=== PATIENT | male | born 1945 | race Hispanic/Latino ===

== ENCOUNTER → 2018-08-23 | Outpatient (CLI) | payer OTHER ==
[~2018-08-23] MED LIST: ALBU90AE IH; ALLO300T2 PO; ASPI-891 PO; ATEN25TA PO; ATOR-2 PO; BUDE10.2 IH; CLON0.1T PO; CLOP75TA14 PO; DOCU-282 PO; LACT10SO PO; LEVO50TA11 PO; LORA10CA9 PO; LORA1TAB3 PO; LOSA25TA41 PO; METF-444 PO; OXYB5TAB10 PO; PANT40TA25 PO; TRAM50TA4 PO; TRAZ150T79 PO
== END | disposition home or self-care (01) ==
LOC: SHCH 09:18
PROVIDERS: ATTEND Internal Medicine Cardiovascular Disease
DX: I65.23 Occlusion and stenosis of bilateral carotid arteries (principal); I65.01 Occlusion and stenosis of right vertebral artery
CPT/HCPCS: 93880

== ENCOUNTER 2018-10-31 17:42 | Emergency (ER) | payer OTHER ==
[2018-10-31 18:33] LABS: BASOPHILS % (AUTO) 0.4 % (0.0-5.0); EOSINOPHILS % (AUTO) 2.1 % (0.0-8.0); HEMATOCRIT 39.3 % (42-54); LYMPHOCYTES % (AUTO) 28.2 % (21.0-51.0); MEAN CORPUSCULAR HEMOGLOBIN 32.4 pg (27.0-33.0); MEAN CORPUSCULAR HGB CONC 34.4 g/dL (32.0-36.0); MEAN CORPUSCULAR VOLUME 94.3 fL (79-99); MONOCYTES % (AUTO) 7.2 % (3.0-13.0); NEUTROPHILS % (AUTO) 62.1 % (40.0-77.0); NUCLEATED RED BLOOD CELLS 0.1 % (0.0-0.19); PLATELET COUNT (AUTO) 144 K/uL (130-400); RED BLOOD CELL COUNT(AUTO) 4.16 MIL/uL (4.50-6.20); RED CELL DISTRIBUTION WIDTH 15.6 % (11.0-15.5); WHITE BLOOD COUNT (AUTO) 5.9 K/uL (4.8-10.8)
[2018-10-31 18:44] LABS: POTASSIUM 4.6 mmol/L (3.5-5.1)
[2018-10-31 18:49] LABS: ALBUMIN 3.8 g/dL (3.5-5.0); BILIRUBIN,TOTAL 0.9 mg/dL (0.2-1.0); TOTAL PROTEIN, SERUM 6.3 g/dL (6.0-8.3)
[2018-10-31 18:57] LABS: B-TYPE NATRIURETIC PEPTIDE 39 pg/mL (0-100)
== END 2018-10-31 21:16 | disposition home or self-care (01) ==
LOC: EDH 17:42
DX: J45.901 Unspecified asthma with (acute) exacerbation (principal); E78.5 Hyperlipidemia, unspecified; I10 Essential (primary) hypertension; K21.9 Gastro-esophageal reflux disease without esophagitis; Z98.62 Peripheral vascular angioplasty status; Z87.891 Personal history of nicotine dependence; Z88.2 Allergy status to sulfonamides; Z88.1 Allergy status to other antibiotic agents; Z88.8 Allergy status to other drugs, medicaments and biological substances
CPT/HCPCS: 36415; 71045; 80053; 83880; 85025

== ENCOUNTER → 2019-05-01 | Outpatient (CLI) | payer OTHER ==
[~2019-05-01] MED LIST changes: -OXYB5TAB10 PO; +OXYB5TAB15 PO
== END | disposition home or self-care (01) ==
LOC: OIH 15:19
PROVIDERS: ATTEND Family Medicine
DX: I10 Essential (primary) hypertension (principal); R63.4 Abnormal weight loss
CPT/HCPCS: 71046

== ENCOUNTER → 2019-06-15 | Outpatient (CLI) | payer OTHER | END | disposition home or self-care (01) | LOC: SHCH 11:00 | PROVIDERS: ATTEND Internal Medicine Cardiovascular Disease | DX: I65.23 Occlusion and stenosis of bilateral carotid arteries (principal) | CPT/HCPCS: 93880 ==

== ENCOUNTER → 2019-06-16 | Outpatient (CLI) | payer OTHER ==
[~2019-06-16] MED LIST changes: +IOHEXOL-350 75 ML VIAL IV ONE
== END | disposition home or self-care (01) ==
LOC: RAH 07:22
PROVIDERS: ATTEND Internal Medicine Gastroenterology
DX: K57.30 Diverticulosis of large intestine without perforation or abscess without bleeding (principal); I70.0 Atherosclerosis of aorta; I77.811 Abdominal aortic ectasia; I21.9 Acute myocardial infarction, unspecified
CPT/HCPCS: 74170; Q9967

== ENCOUNTER → 2019-07-11 | Outpatient (CLI) | payer OTHER ==
[~2019-07-11] MED LIST changes: -IOHEXOL-350 75 ML VIAL IV ONE
== END | disposition home or self-care (01) ==
LOC: SHCH 11:00
PROVIDERS: ATTEND Internal Medicine Cardiovascular Disease
DX: I73.9 Peripheral vascular disease, unspecified (principal)
CPT/HCPCS: 93925

== ENCOUNTER → 2019-07-18 | Outpatient (CLI) | payer OTHER ==
[~2019-07-18] MED LIST changes: +IOHEXOL-350 75 ML VIAL IV ONE
== END | disposition home or self-care (01) ==
LOC: RAH 07:45
PROVIDERS: ATTEND Internal Medicine Cardiovascular Disease
DX: I65.22 Occlusion and stenosis of left carotid artery (principal)
CPT/HCPCS: 70498; Q9967

== ENCOUNTER → 2019-09-18 | Outpatient (CLI) | payer OTHER ==
[~2019-09-18] MED LIST changes: -IOHEXOL-350 75 ML VIAL IV ONE
== END | disposition home or self-care (01) ==
LOC: OIH 13:23
PROVIDERS: ATTEND Family Medicine
DX: J45.30 Mild persistent asthma, uncomplicated (principal)
CPT/HCPCS: 71046

== ENCOUNTER → 2019-11-02 | Outpatient (CLI) | payer OTHER | END | disposition home or self-care (01) | LOC: SHCH 08:13 | PROVIDERS: ATTEND Internal Medicine Cardiovascular Disease | DX: I99.8 Other disorder of circulatory system (principal); I10 Essential (primary) hypertension; R42 Dizziness and giddiness | CPT/HCPCS: 70450; 93306; 93356 ==

== ENCOUNTER → 2020-12-04 | Outpatient (CLI) | payer OTHER ==
[~2020-12-04] MED LIST changes: -LACT10SO PO; +LACT10SO5 PO; -PANT40TA25 PO; +PANT40TA54 PO
== END | disposition home or self-care (01) ==
LOC: SHCH 07:49
PROVIDERS: ATTEND Internal Medicine Cardiovascular Disease
DX: I65.23 Occlusion and stenosis of bilateral carotid arteries (principal); R09.89 Other specified symptoms and signs involving the circulatory and respiratory systems; I70.293 Other atherosclerosis of native arteries of extremities, bilateral legs; I71.4 Abdominal aortic aneurysm, without rupture
CPT/HCPCS: 93880; 93978

== ENCOUNTER → 2021-07-10 | Outpatient (CLI) | payer OTHER | END | disposition home or self-care (01) | LOC: OIH 12:49 | PROVIDERS: ATTEND Family Medicine | DX: K21.9 Gastro-esophageal reflux disease without esophagitis (principal); K59.00 Constipation, unspecified; M47.815 Spondylosis without myelopathy or radiculopathy, thoracolumbar region; M41.9 Scoliosis, unspecified | CPT/HCPCS: 74018 ==

== ENCOUNTER → 2022-02-16 | Outpatient (CLI) | payer OTHER ==
[~2022-02-16] MED LIST changes: +IOHEXOL 350 MG/ML 100ML INFUS..BTL IV ONE; +TOBR5DRO7 OP
== END | disposition home or self-care (01) ==
LOC: RAH 09:11
PROVIDERS: ATTEND Family Medicine
DX: G31.9 Degenerative disease of nervous system, unspecified (principal); R51.9 Headache, unspecified
CPT/HCPCS: 70470; Q9967

== ENCOUNTER → 2022-04-08 | Outpatient (CLI) | payer OTHER ==
[~2022-04-08] MED LIST changes: +CLOP-31 PO; -CLOP75TA14 PO; -IOHEXOL 350 MG/ML 100ML INFUS..BTL IV ONE
== END | disposition home or self-care (01) ==
LOC: SHCH 07:45
PROVIDERS: ATTEND Internal Medicine Cardiovascular Disease
DX: I65.23 Occlusion and stenosis of bilateral carotid arteries (principal); I65.01 Occlusion and stenosis of right vertebral artery; I10 Essential (primary) hypertension; I77.811 Abdominal aortic ectasia; I70.293 Other atherosclerosis of native arteries of extremities, bilateral legs; I25.10 Atherosclerotic heart disease of native coronary artery without angina pectoris; I70.0 Atherosclerosis of aorta
CPT/HCPCS: 93880; 93978

== ENCOUNTER → 2022-12-11 | Outpatient (CLI) | payer OTHER ==
[~2022-12-11] MED LIST changes: +IOHEXOL 350 MG/ML 100ML INFUS..BTL IV ONE; -TOBR5DRO7 OP; +TOBROS OP
== END | disposition home or self-care (01) ==
LOC: RAH 08:06
PROVIDERS: ATTEND Internal Medicine Cardiovascular Disease
DX: I65.22 Occlusion and stenosis of left carotid artery (principal); I70.8 Atherosclerosis of other arteries; M47.812 Spondylosis without myelopathy or radiculopathy, cervical region
CPT/HCPCS: 70498; Q9967

== ENCOUNTER → 2023-05-14 | Outpatient (CLI) | payer OTHER ==
[~2023-05-14] MED LIST changes: -IOHEXOL 350 MG/ML 100ML INFUS..BTL IV ONE; -OXYB5TAB15 PO; +OXYB5TAB20 PO
== END | disposition home or self-care (01) ==
LOC: RAH 10:51
PROVIDERS: ATTEND Family Medicine
DX: I70.203 Unspecified atherosclerosis of native arteries of extremities, bilateral legs (principal); M25.562 Pain in left knee
CPT/HCPCS: 93925

== ENCOUNTER 2023-08-27 17:11 | Emergency (ER) | payer OTHER ==
[~2023-08-27] VITALS: Ht 182.9 cm; Wt 79.4 kg
[2023-08-27 17:53] LABS: HEMATOCRIT 38.6 % (42-54); MEAN CORPUSCULAR HEMOGLOBIN 28.2 pg (27.0-33.0); MEAN CORPUSCULAR HGB CONC 33.4 g/dL (32.0-36.0); MEAN CORPUSCULAR VOLUME 84.5 fL (79-99); RED BLOOD CELL COUNT(AUTO) 4.57 MIL/uL (4.50-6.20); RED CELL DISTRIBUTION WIDTH 15.8 % (11.0-15.5); WHITE BLOOD COUNT (AUTO) 6.1 K/uL (4.8-10.8)
[2023-08-27 18:02] LABS: CREATININE 1.3 mg/dL (0.5-1.3); POTASSIUM 3.4 mmol/L (3.5-5.1)
[2023-08-27 18:17] LABS: ALBUMIN 3.7 g/dL (3.5-5.0); BILIRUBIN,TOTAL 0.7 mg/dL (0.2-1.0); TOTAL PROTEIN, SERUM 6.4 g/dL (6.0-8.3)
[2023-08-27 18:49] VITALS: PULSE 66; RESP 11
[2023-08-27] MEDS: IPRATROPIUM/ALBUTEROL SULFATE 3 ML SOLUTION IH ONE (18:49)
[2023-08-27 19:19] LABS: SARS-CoV-2, RNA, NAAT NEGATIVE SARS CoV-2 (NEGATIVE)
[2023-08-27 19:24] LABS: INFLUENZA TYPE A Negative For Type A (NEGATIVE); INFLUENZA TYPE B Negative For Type B (NEGATIVE)
[2023-08-27 20:45] VITALS: BP 142/72; PULSE 60; RESP 16; O2SAT 96
[2023-08-27] MEDS: DEXAMETHASONE SOD PHOSPHATE 4 MG/ML 1ML VIAL IM SCH (20:57)
== END 2023-08-27 21:45 | disposition home or self-care (01) ==
LOC: EDH 17:11
DX: J06.9 Acute upper respiratory infection, unspecified (principal); I10 Essential (primary) hypertension; E11.9 Type 2 diabetes mellitus without complications; J45.909 Unspecified asthma, uncomplicated; E03.9 Hypothyroidism, unspecified; Z88.0 Allergy status to penicillin; Z88.6 Allergy status to analgesic agent; Z88.8 Allergy status to other drugs, medicaments and biological substances; Z79.84 Long term (current) use of oral hypoglycemic drugs; Z79.899 Other long term (current) drug therapy; Z20.822 Contact with and (suspected) exposure to COVID-19
CPT/HCPCS: 99285; 71045; 87635; 84484; 80053; 83880; 85027; 87804 ×2; 36415; 96372; 93005; 94640; J1100

== ENCOUNTER 2024-01-14 23:27 | Emergency (ER) | payer OTHER ==
[~2024-01-14] VITALS: Ht 180.3 cm; Wt 70.3 kg
[2024-01-14 23:52] LABS: BASOPHILS # (AUTO) 0.01 K/uL (0.00-0.20); BASOPHILS % (AUTO) 0.1 % (0.0-5.0); EOSINOPHILS # (AUTO) 0.03 K/uL (0.00-0.70); EOSINOPHILS % (AUTO) 0.4 % (0.0-8.0); HEMATOCRIT 36.8 % (42-54); IMMATURE GRANULOCYTE ABSOLUTE 0.04 K/uL (0-1); LYMPHOCYTES # (AUTO) 0.8 K/uL (1.0-4.8); LYMPHOCYTES % (AUTO) 11.6 % (21.0-51.0); MEAN CORPUSCULAR HGB CONC 34.2 g/dL (32.0-36.0); MEAN CORPUSCULAR VOLUME 84.6 fL (79-99); MONOCYTES # (AUTO) 0.6 K/uL (0.1-1.0); MONOCYTES % (AUTO) 8.8 % (3.0-13.0); NEUTROPHILS # (AUTO) 5.3 K/uL (1.8-7.7); NEUTROPHILS % (AUTO) 78.5 % (40.0-77.0); PLATELET COUNT (AUTO) 142 K/uL (130-400); RED BLOOD CELL COUNT(AUTO) 4.35 MIL/uL (4.50-6.20); RED CELL DISTRIBUTION WIDTH 16.7 % (11.0-15.5); WHITE BLOOD COUNT (AUTO) 6.7 K/uL (4.8-10.8)
[2024-01-14] MEDS: ONDANSETRON 4MG INJ IVP ONE (23:59)
[2024-01-14] MEDS: 0.9%NACL 1000ML 1,000 ML IV ONE (23:59)
[2024-01-14] MEDS: KETOROLAC 15MG/ML VIAL (15MG/ML) IV ONE (23:59)
[2024-01-15 00:27] LABS: ALBUMIN 3.3 g/dL (3.5-5.0); BILIRUBIN,TOTAL 3.1 mg/dL (0.2-1.0); CREATININE 1.3 mg/dL (0.5-1.3); TOTAL PROTEIN, SERUM 5.8 g/dL (6.0-8.3)
[2024-01-15 00:31] LABS: POTASSIUM 2.6 mmol/L (3.5-5.1)
[2024-01-15] MEDS ORDERED: IOHEXOL-350 75 ML VIAL IV ONE (00:48)
[2024-01-15] MEDS: POTASSIUM BICARB/CIT AC 25 MEQ TABLET.EFF PO ONE (00:50)
[2024-01-15] MEDS: FAMOTIDINE 20MG VIAL IV ONE (00:50)
[2024-01-15] MEDS: MORPHINE 2 MG SYG IM ONE (01:33)
[2024-01-15] MEDS: BISACODYL 10 MG SUPP.RECT RC ONE (01:58)
[2024-01-15] MEDS: SENNOSIDES 8.6 MG TABLET PO SCH (01:58)
[2024-01-15 02:00] VITALS: BP 136/74; PULSE 69; RESP 16; O2SAT 97
[2024-01-16] MEDS ORDERED: ROSU40TA70 PO (11:42)
[2024-01-16] MEDS ORDERED: LEVE500T19 PO (11:42)
[2024-01-16] MEDS ORDERED: TRAZ-187 PO (11:42)
[2024-01-16] MEDS ORDERED: LEVO75CA5 PO (11:42)
[2024-01-16] MEDS ORDERED: MIDO10TA PO (11:42)
[2024-01-16] MEDS ORDERED: MONT-39 PO (11:42)
[2024-01-16] MEDS ORDERED: ESCI20TA38 PO (11:42)
[2024-01-16] MEDS ORDERED: ASPI-1197 PO (11:42)
[2024-01-16] MEDS ORDERED: LEVE250T2 PO (11:42)
[2024-01-16] MEDS ORDERED: FLUT1BLS3 IH (11:42)
== END 2024-01-15 03:01 | disposition home or self-care (01) ==
LOC: EDH 23:27
DX: K59.00 Constipation, unspecified (principal); E11.9 Type 2 diabetes mellitus without complications; I10 Essential (primary) hypertension; Z88.1 Allergy status to other antibiotic agents; Z88.8 Allergy status to other drugs, medicaments and biological substances; Z79.899 Other long term (current) drug therapy; Z88.0 Allergy status to penicillin
CPT/HCPCS: 99285; 74177; 96374; 96361; 96375 ×2; 80053; 83690; 85025; 36415; 96372; J7030; J2405; J1885; J3490; J2270; Q9967

== ENCOUNTER 2025-03-14 10:37 | Emergency (ER) | payer OTHER ==
[~2025-03-14] VITALS: Ht 185.4 cm; Wt 83.5 kg
[~2025-03-14 10:37] MED LIST changes: -ALBU90AE IH; -ALLO300T2 PO; +ASPI-1197 PO; -ASPI-891 PO; -ATEN25TA PO; -ATOR-2 PO; -BUDE10.2 IH; -CLON0.1T PO; -DOCU-282 PO; +ESCI20TA38 PO; +FLUT1BLS3 IH; -LACT10SO5 PO; +LEVE250T2 PO; +LEVE500T19 PO; -LEVO50TA11 PO; +LEVO75CA6 PO; -LORA10CA9 PO; -LORA1TAB3 PO; -LOSA25TA41 PO; -METF-444 PO; +MIDO10TA3 PO; +MONT-39 PO; +ROSU40TA88 PO; -TOBROS OP; -TRAM50TA4 PO; +TRAZ-187 PO; -TRAZ150T79 PO
--- NOTE | 2025-03-14 10:46 | ERN ---
ED Note History of Present Illness Stated Complaint: FALL Chief Complaint: Mechanical Fall Time Seen by MD: 10:39 Time Seen by Midlevel: 10:40 Dictation: 79-year-old male with a history of hypothyroidism coming in for evaluation status post ground level fall. Patient states fall happened down Wednesday, states he got up from the couch to go to the bathroom felt dizzy and fell backwards. Denies any LOC, states at that time he was bleeding from his head. At this time patient's only complaint is headache and neck pain. Denies having any chest pain, chest discomfort, dizziness, numbness, tingling, unilateral weakness, slurred speech. Denies any nausea or vomiting. Allergies: Coded Allergies: amoxicillin (Unverified Allergy, Intermediate, 05/02/18) clavulanic acid (Unverified Allergy, Intermediate, 05/02/18) doxepin (Unverified Allergy, Intermediate, anxiety, 05/02/18) ramelteon (Unverified Allergy, Intermediate, anxiety, 05/02/18) amitriptyline (Verified Allergy, Unknown, 01/27/18) amlodipine (Verified Allergy, Unknown, 01/27/18) cetirizine (Verified Allergy, Unknown, 01/27/18) cyclobenzaprine (Verified Allergy, Unknown, 01/27/18) diclofenac (Verified Allergy, Unknown, 01/27/18) esomeprazole (Verified Allergy, Unknown, 01/27/18) fluoxetine (Verified Allergy, Unknown, 01/27/18) lisinopril (Unverified Allergy, Unknown, 11/23/21) metoprolol (Verified Allergy, Unknown, 01/27/18) midodrine (Unverified Allergy, Unknown, 11/23/21) olanzapine (Unverified Allergy, Unknown, 11/23/21) potassium (Unverified Allergy, Unknown, 01/16/24) quetiapine (Unverified Allergy, Unknown, 11/23/21) sulfamethoxazole (Verified Allergy, Unknown, 01/27/18) suvorexant (Unverified Allergy, Unknown, 11/23/21) temazepam (Unverified Allergy, Unknown, 11/23/21) trimethoprim (Verified Allergy, Unknown, 01/27/18) Home Meds Active Scripts Potassium Chloride (Potassium Chloride) 20 Meq Tab.er.prt, 1 TAB PO DAILY for 5 Days, #5 TAB 0 Refills Prov:PERRY WORLEY CALCIMINER 03/14/25 Reported Medications Levothyroxine Sodium (Levothyroxine) 75 Mcg Capsule, 75 MCG PO ACBKFST, CAP 01/16/24 Fluticasone/Umeclidin/Vilanter (Trelegy Ellipta 100-62.5-25) 100-62.5 Blst.w.dev, 1 PUFF IH DAILY 01/16/24 Trazodone HCl (Trazodone HCl) 100 Mg Tablet, 450 MG PO HS, TAB 01/16/24 Rosuvastatin Calcium (Rosuvastatin Calcium) 40 Mg Tablet, 1 TAB PO DAILY 01/16/24 Montelukast Sodium (Montelukast Sodium) 10 Mg Tablet, 1 TAB PO DAILY 01/16/24 Midodrine HCl (Midodrine HCl) 10 Mg Tablet, 1 TAB PO TID 01/16/24 Levetiracetam (Levetiracetam) 500 Mg Tablet, 500 MG PO DAILYDINNER, TAB 01/16/24 Levetiracetam (Levetiracetam) 250 Mg Tablet, 250 MG PO DAILY, TAB 01/16/24 Escitalopram Oxalate (Escitalopram Oxalate) 20 Mg Tablet, 1 TAB PO DAILY 01/16/24 Aspirin (Aspirin) 81 Mg Tab.chew, 81 MG PO DAILY, TAB.CHEW 01/16/24 Clopidogrel Bisulfate (Plavix) 75 Mg Tablet, 75 MG PO DAILY, TAB 05/02/18 Oxybutynin Chloride (Oxybutynin Chloride) 5 Mg Tablet, 2 TAB PO HS, TAB 05/02/18 Pantoprazole Sodium (Pantoprazole Sodium) 40 Mg Tablet.dr, 40 MG PO DAILY, TAB 05/02/18 Past Medical History Past Medical History: CAD, Hypotension Additional Past Medical Hx: THYROID Surgical History: Other Surgical History Other: L KNEE Social History: Negative, Lives with family Review of System Dictation Constitutional: Negative for fever,chills, and weight loss Eyes: Negative for injury, pain,redness, and discharge ENT: Negative for injury,pain or swelling Cardiovascular: Negative for chest pain, palpitations, and edema Respiratory: Negative for shortness of breath, cough, and wheezing, Abdomen/GI: Negative for abdominal pain, nausea, vomiting, diarrhea, and consti pation Back: Negative for injury and pain : Negative for injury, bleeding and discharge MS/Extremity: Negative for injury and deformity Skin: Negative for rash, and discoloration Neuro: Positive for headache, no weakness, male numbness, no tingling, and no seizure Psych: Negative for suicide ideation, homicidal ideation, and hallucinations Review of Systems: was completed Initial Vital Sign VS Vital Signs Date Time Temp Pulse Resp B/P (MAP) Pulse Ox O2 Delivery O2 Flow Rate FiO2 03/14/25 10:39 98.2 84 16 120/79 95 Room Air 0 03/14/25 12:00 21 Physical Exam Dictation General: awake, alert, NAD Head/Face: Ecchymosis noted to the scalp, no open wounds, Eyes: PERRL, EOMI, vision at baseline ENT: oral cavity clear, TMs clear, no signs of infection Neck: Trachea midline, supple, no nuchal rigidity Cardiovascular: RRR, normal S1/S2, No MRGs, no JVD Respiratory: CTAB, no respiratory distress, No rales or wheezes Abdomen: Soft, non-tender, non-distended, normal bowel sounds, no guarding or rebound. Skin: Warm, dry, normal turgor, no rash MS/Extremity: Pulses equal, no cyanosis, neurovascular intact, FROM Neuro: COAx4, GCS 15, strength 5/5, CN 2-12 intact, normal cerebellar exam, normal gait, Psych: Normal behavior, mood, and affect normal Results (Laboratory/Radiology) Laboratory/Radiology Laboratory Tests Test 03/14/25 10:52 White Blood Count 6.3 K/uL (4.8-10.8) Red Blood Count 4.61 MIL/uL (4.50-6.20) Hemoglobin 12.6 g/dL (14.0-18.0) L Hematocrit 38.4 % (42-54) L Mean Corpuscular Volume 83.3 fL (79-99) Mean Corpuscular Hemoglobin 27.3 pg (27.0-33.0) Mean Corpuscular Hemoglobin Concent 32.8 g/dL (32.0-36.0) Red Cell Distribution Width 17.1 % (11.0-15.5) H Platelet Count 172 K/uL (130-400) Mean Platelet Volume 10.4 fL (7.5-10.5) Immature Granulocyte % (Auto) 0.3 % (0-1) Neutrophils (%) (Auto) 59.7 % (40.0-77.0) Lymphocytes (%) (Auto) 28.8 % (21.0-51.0) Monocytes (%) (Auto) 8.2 % (3.0-13.0) Eosinophils (%) (Auto) 2.5 % (0.0-8.0) Basophils (%) (Auto) 0.5 % (0.0-5.0) Neutrophils # (Auto) 3.8 K/uL (1.8-7.7) Lymphocytes # (Auto) 1.8 K/uL (1.0-4.8) Monocytes # (Auto) 0.5 K/uL (0.1-1.0) Eosinophils # (Auto) 0.16 K/uL (0.00-0.70) Basophils # (Auto) 0.03 K/uL (0.00-0.20) Absolute Immature Granulocyte (auto 0.02 K/uL (0-1) Nucleated Red Blood Cells 0.0 % (0.0-0.19) Sodium Level 148 mmol/L (136-145) H Potassium Level 2.3 mmol/L (3.5-5.1) *L Chloride Level 105 mmol/L (101-111) Carbon Dioxide Level 34 mmol/L (21-32) H Blood Urea Nitrogen 6 mg/dL (7-18) L Creatinine 1.1 mg/dL (0.5-1.3) Glomerular Filtration Rate Calc 69 mL/min (>90) Random Glucose 100 mg/dL (70-105) Total Calcium 8.4 mg/dL (8.5-10.1) L Troponin I High Sensitivity 32 ng/L (4-75) Labs Reviewed?: Yes EKG Comment: EKGs done at 10 50. Sinus arrhythmia at rate of 64. Left anterior fascicular block. No STEMI interpreted by ER MD CT Scan Comment: [address] [address] IMAGING REPORT Signed PATIENT: MICHAEL MCKEE MR#: [id number] : 1945 SEX: M AGE: 79 LOCATION: ED ORDER [id number] STATUS: REG ER REPORT#: [id number] SERVICE 38 REASON: fall ORDERING PHYSICIAN: PERRY WORLEY PROCEDURE: HEAD WO - CT HEAD/BRAIN W/O CONTRAST EXAM: Non-contrast CT examination of the Brain CLINICAL HISTORY: Fall. Syncope. TECHNIQUE: Thin collimated axial CT images of the brain were obtained, with sagittal and coronal reformatted images also submitted. CT scan done according to ALARA (As Low as Reasonably Achievable). CONTRAST USED: None. COMPARISON: Prior CT brain dated 01/15/24. FINDINGS: No acute intracranial abnormality is present. No acute cortical infarction, hemorrhage, mass, or mass effect. Stable chronic ischemic and atrophic changes. No hydrocephalus or abnormal extra-axial fluid collections. The posterior fossa is unremarkable. The skull base and calvarium are intact. The included portions of the paranasal sinuses and mastoid air cells are clear. IMPRESSION: No acute intracranial abnormality is present. Stable chronic ischemic and atrophic changes. /[place] DICTATED BY: QUAN PENNINGTON MD DATE: 03/14/251240 ELECTRONICALLY SIGNED BY: QUAN PENNINGTON MD DATE: 03/14/251240 [place] [id number] IMAGING REPORT Signed PATIENT: MICHAEL MCKEE MR#: [id number] : 1945 SEX: M AGE: 79 LOCATION: [facility] ORDER [id number] STATUS: REG ER [facility] REPORT#: [id number] SERVICE 103 REASON: fall ORDERING PHYSICIAN: PERRY WORLEY PROCEDURE: C SPIN WO - CT CERVICAL SPINE W/O CONTRAST EXAM: CT Cervical Spine Without IV Contrast CLINICAL HISTORY: Fall. TECHNIQUE: Thin collimated axial CT images of the cervical spine were obtained with sagittal and coronal reformatted images also submitted. CT scan is done according to ALARA (As Low As Reasonably Achievable). CONTRAST: None. COMPARISON: None provided. FINDINGS: No acute fracture. Mild loss of normal cervical lordosis. Mild to moderate dextroscoliosis. Multilevel cervical spondylosis with prominent marginal osteophytes. Severe disc space narrowing at the C3-4, C4-5, C5-6, and C6-7 levels with a circumferential disc osteophyte complex bulge and bilateral neural foraminal narrowing. Bilateral multilevel mild to moderate facet arthropathy. Normal vertebral body heights. Diffuse osteopenia. The surrounding soft tissues are unremarkable. There is a left-sided pleural effusion which is not fully visualized on this exam. IMPRESSION: No acute fracture or dislocation of the cervical spine. Multilevel cervical spondylosis. Left-sided pleural effusion. /[place] DICTATED BY: QUAN PENNINGTON MD DATE: 03/14/25 125 ELECTRONICALLY SIGNED BY: QUAN PENNINGTON MD DATE: 03/14/25 125 ED Course ED Course Orders Procedure Category Date Status Time Cbc With Differential LAB 03/14/25 Complete 10:39 Basic Metabolic Panel LAB 03/14/25 Complete 10:39 Troponin I High LAB 03/14/25 Complete Sensitivity 10:39 12 Lead Ekg Tracing- EKG 03/14/25 Complete Technical 10:39 Chest 1vw RAD 03/14/25 Resulted 10:39 Ct Head/Brain W/O CT 03/14/25 Resulted Contrast 10:39 Ct Cervical Spine W/O CT 03/14/25 Resulted Contrast 10:39 Lactated Ringers PHA 03/14/25 Complete 1000ml (Lactated 10:39 Potassium Bicarb/Cit PHA 03/14/25 Complete Ac 25meq (K-Lyte Ta 11:15 Potassium Chloride PHA 03/14/25 Complete 10meq/100ml ([place] 11:30 Current Medications Medications (Trade) Dose Ordered Sig/Rohini Route PRN Reason Start Time Stop Time Status Last Admin Dose Admin Lactated Ringer's 1,000 ml @ 500 mls/hr Q2H STAT IV 03/14/25 10:39 03/14/25 12:38 DC 03/14/25 11:04 Potassium Bicarbonate (K-Lyte Tablet Eff 25 Meq Tablet.eff) 50 meq ONCE STAT PO 10/8/25 11:15 03/14/25 11:20 DC 03/14/25 11:42 Potassium Chloride 100 ml @ 100 mls/hr ONCE ONCE IV 03/14/25 11:30 03/14/25 12:29 DC 03/14/25 11:42 Vital Signs Date Time Temp Pulse Resp B/P (MAP) Pulse Ox O2 Delivery O2 Flow Rate FiO2 03/14/25 13:51 98.2 67 16 159/80 98 Room Air* 0 21 03/14/25 13:41 98.2 60 16 149/80 96 Room Air* 0 21 03/14/25 12:00 98.2 67 18 141/76 98 Room Air* 0 21 03/14/25 10:39 98.2 84 16 120/79 95 Room Air 0 Medical Decision Making MDM MDM: 79-year-old male with a history of hypothyroidism coming in for evaluation status post ground level fall. Patient states fall happened down Wednesday, states he got up from the couch to go to the bathroom felt dizzy and fell backwards. Denies any LOC, states at that time he was bleeding from his head. At this time patient's only complaint is headache and neck pain. Denies having any chest pain, chest discomfort, dizziness, numbness, tingling, unilateral weakness, slurred speech. Denies any nausea or vomiting. CBC shows no leukocytosis, no anemia, no thrombocytopenia. Chemistry shows hyponatremia at 148, hypokalemia at 2.3. Normal kidney function. Troponin is negative. Chest x-ray shows no acute finding, EKGs shows no ST elevations or dysrhythmias. Potassium was replaced p.o. and IV. Discussed case the hypokalemia with the patient, recommended hospital admission for IV potassium replacement and monitoring gave him but then she risk for cardiac arrhythmias. 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 Shared decision-making was completed the patient has a alert and oriented it has been patient is making capacity agreed to outpatient management with the oral potassium supplementation and close follow up. Strict return pre cautions discussed including chest pain, palpitations, weakness, worsening any symptoms. Differential diagnosis: Dehydration, electrolyte abnormality, STEMI, vertigo, ICH Rationale: Tests considered and ordered secondary to shared decision making include: Previous outside records reviewed: Old ER visits. Risk of complication and/or morbidity or mortality of patient management: None Medications-Per medication reconciliation Need for hospitalization: Patient does not meet criteria for hospitalization. Need for emergency major/minor surgery: No There are no social concerns with this patient. Prescription drug management Prescriptions will include symptomatic care Patient's prior external medical records from other ER visits were reviewed by me as indicated. Prior testing and results from previous visits were reviewed. Prior tests were taken into account with medical decision making and resource utilization, independent historian/historians were used to obtain complete medical history. I independently interpreted the test that were performed, results were reviewed by me and considered findings on radiology if ordered. Medical management and examination interpretation discussions were had by me with other qualified healthcare professionals as indicated for the patient's care. DX & DISP Disposition: Discharge Departure Impression: Primary Impression: Fall Additional Impression: Hypokalemia Condition: Stable Scripts Potassium Chloride (Potassium Chloride) 20 Meq Tab.er.prt 1 TAB PO DAILY for 5 Days, #5 TAB 0 Refills Prov: PERRY WORLEY 03/14/25 Additional Instructions: Stay hydrated, follow up with your primary care doctor in 1-2 days. If you develop chest pain, palpitations, weakness, return to the hospital. Referrals: JORGE WARE MD (PCP) Time of Disposition: 13:25 I have reviewed the case, and I agree with, Diagnosis and Plan PERRY WORLEY Mar 14, 2025 10:46 KATHY HILLS DO Mar 14, 2025 15:56
[2025-03-14 10:55] LABS: IMMATURE GRANULOCYTE ABSOLUTE 0.02 K/uL (0-1); NUCLEATED RED BLOOD CELLS 0.0 % (0.0-0.19); PLATELET COUNT (AUTO) 172 K/uL (130-400); RED BLOOD CELL COUNT(AUTO) 4.61 MIL/uL (4.50-6.20); RED CELL DISTRIBUTION WIDTH 17.1 % (11.0-15.5); WHITE BLOOD COUNT (AUTO) 6.3 K/uL (4.8-10.8)
[2025-03-14 11:04] LABS: CREATININE 1.1 mg/dL (0.5-1.3); GLOMERULAR FILTR. RATE CALC 69.0 mL/min (>90); GLUCOSE,RANDOM 100.0 mg/dL (70-105); SODIUM SERUM 148.0 mmol/L (136-145); UREA NITROGEN, BLOOD 6.0 mg/dL (7-18)
[2025-03-14] MEDS: LACTATED RINGERS 1000ML 1,000 ML IV STA (11:04)
--- NOTE | 2025-03-14 11:42 | HMCIMG ---
EXAM: Non-contrast CT examination of the Brain CLINICAL HISTORY: Fall. Syncope. TECHNIQUE: Thin collimated axial CT images of the brain were obtained, with sagittal and coronal reformatted images also submitted. CT scan done according to ALARA (As Low as Reasonably Achievable). CONTRAST USED: None. COMPARISON: Prior CT brain dated 01/15/24. FINDINGS: No acute intracranial abnormality is present. No acute cortical infarction, hemorrhage, mass, or mass effect. Stable chronic ischemic and atrophic changes. No hydrocephalus or abnormal extra-axial fluid collections. The posterior fossa is unremarkable. The skull base and calvarium are intact. The included portions of the paranasal sinuses and mastoid air cells are clear. IMPRESSION: No acute intracranial abnormality is present. Stable chronic ischemic and atrophic changes. /[place]
--- NOTE | 2025-03-14 11:53 | HMCIMG ---
EXAM: CT Cervical Spine Without IV Contrast CLINICAL HISTORY: Fall. TECHNIQUE: Thin collimated axial CT images of the cervical spine were obtained with sagittal and coronal reformatted images also submitted. CT scan is done according to ALARA (As Low As Reasonably Achievable). CONTRAST: None. COMPARISON: None provided. FINDINGS: No acute fracture. Mild loss of normal cervical lordosis. Mild to moderate dextroscoliosis. Multilevel cervical spondylosis with prominent marginal osteophytes. Severe disc space narrowing at the C3-4, C4-5, C5-6, and C6-7 levels with a circumferential disc osteophyte complex bulge and bilateral neural foraminal narrowing. Bilateral multilevel mild to moderate facet arthropathy. Normal vertebral body heights. Diffuse osteopenia. The surrounding soft tissues are unremarkable. There is a left-sided pleural effusion which is not fully visualized on this exam. IMPRESSION: No acute fracture or dislocation of the cervical spine. Multilevel cervical spondylosis. Left-sided pleural effusion. /[place]
--- NOTE | 2025-03-14 12:03 | EKG ---
[facility] Test Date: 2025-03-14 Test Time: 10:50:55 Pat Name: MICHAEL MCKEE Department: ED Room: Gender: Sports Medicine Specialist: 9 : 1945 Requested By: PERRY WORLEY Order Number: [id number] Reading MD: Damian Morley Measurements Intervals [place] Rate: 64 P: 56 ID: [id number] QRS: -53 QRSD: 92 T: 57 QT: 358 QTc: 371 Interpretive Statements Sinus arrhythmia Premature Atrial beats Left Atrial Dilation LEFT AXIS DEVIATION Compared to ECG 01/15/2024 17:33:35 Left anterior fascicular block now present Sinus rhythm no longer present T-wave abnormality no longer present Electronically Signed On 03-15-2025 06:58:04 CDT by Damian Morley Please click the below link to view image of tracing.
[2025-03-14] MEDS ORDERED: POTA-202 PO (13:26)
[2025-03-14 13:51] VITALS: BP 159/80; PULSE 67; RESP 16; TEMP 98.2; O2SAT 98
--- NOTE | 2025-03-14 14:01 | HMCIMG ---
EXAM: CR Chest, 1 View. CLINICAL HISTORY: fall COMPARISON: None provided. FINDINGS: LUNGS: Left lower lobe airspace disease may reflect pneumonia. PLEURAL SPACES: Small left pleural effusion. No pneumothorax. MEDIASTINUM: Cardiac size and mediastinal contours within normal limits. BONES: No aggressive appearing osseous lesion seen. IMPRESSION: 1. Left lower lobe airspace disease, possibly representing pneumonia, with associated small left pleural effusion. /[place]
== END 2025-03-14 13:58 | disposition home or self-care (01) ==
LOC: EDH 10:37
DX: S00.03XA Contusion of scalp, initial encounter (principal); M54.2 Cervicalgia; E87.6 Hypokalemia; I25.10 Atherosclerotic heart disease of native coronary artery without angina pectoris; E03.9 Hypothyroidism, unspecified; Z88.1 Allergy status to other antibiotic agents; Z88.0 Allergy status to penicillin; Z88.2 Allergy status to sulfonamides; Z88.8 Allergy status to other drugs, medicaments and biological substances; Z79.899 Other long term (current) drug therapy; Z79.82 Long term (current) use of aspirin; Z79.02 Long term (current) use of antithrombotics/antiplatelets; W18.39XA Other fall on same level, initial encounter; Y93.89 Activity, other specified; Y92.098 Other place in other non-institutional residence as the place of occurrence of the external cause; Y99.8 Other external cause status
CPT/HCPCS: 36415; 70450; 71045; 72125; 80048; 84484; 85025; 93005; 96361; 96365; 96366; 99285; J3480; J7120

== ENCOUNTER 2025-05-28 13:28 | Emergency (ER) | payer OTHER ==
[~2025-05-28] VITALS: Ht 180.3 cm; Wt 76.4 kg
[~2025-05-28 13:28] MED LIST changes: +POTA-202 PO
[2025-05-28 14:19] LABS: NUCLEATED RED BLOOD CELLS 0.0 % (0.0-0.19); PLATELET COUNT (AUTO) 239.0 K/uL (130-400); RED BLOOD CELL COUNT(AUTO) 4.88 MIL/uL (4.50-6.20); RED CELL DISTRIBUTION WIDTH 16.8 % (11.0-15.5); WHITE BLOOD COUNT (AUTO) 5.7 K/uL (4.8-10.8)
[2025-05-28 14:29] LABS: CREATININE 1.6 mg/dL (0.5-1.3); GLOMERULAR FILTR. RATE CALC 44.0 mL/min (>90); GLUCOSE,RANDOM 118.0 mg/dL (70-105); SODIUM SERUM 139.0 mmol/L (136-145); UREA NITROGEN, BLOOD 14.0 mg/dL (7-18)
--- NOTE | 2025-05-28 14:41 | ERN ---
General Chief Complaint: Mechanical Fall Stated Complaint: FALL Time Seen by MD: 13:45 Source: patient History of Present Illness Timing/Duration: 1-3 hours Modifying Factors: improves with movement Associated Symptoms: other Allergies: Coded Allergies: amoxicillin (Unverified Allergy, Intermediate, 05/02/18) clavulanic acid (Unverified Allergy, Intermediate, 05/02/18) doxepin (Unverified Allergy, Intermediate, anxiety, 05/02/18) ramelteon (Unverified Allergy, Intermediate, anxiety, 05/02/18) amitriptyline (Verified Allergy, Unknown, 01/27/18) amlodipine (Verified Allergy, Unknown, 01/27/18) cetirizine (Verified Allergy, Unknown, 01/27/18) cyclobenzaprine (Verified Allergy, Unknown, 01/27/18) diclofenac (Verified Allergy, Unknown, 01/27/18) esomeprazole (Verified Allergy, Unknown, 01/27/18) fluoxetine (Verified Allergy, Unknown, 01/27/18) lisinopril (Unverified Allergy, Unknown, 11/23/21) metoprolol (Verified Allergy, Unknown, 01/27/18) midodrine (Unverified Allergy, Unknown, 11/23/21) olanzapine (Unverified Allergy, Unknown, 11/23/21) potassium (Unverified Allergy, Unknown, 01/16/24) quetiapine (Unverified Allergy, Unknown, 11/23/21) sulfamethoxazole (Verified Allergy, Unknown, 01/27/18) suvorexant (Unverified Allergy, Unknown, 11/23/21) temazepam (Unverified Allergy, Unknown, 11/23/21) trimethoprim (Verified Allergy, Unknown, 01/27/18) Home Meds Active Scripts Potassium Chloride (Potassium Chloride) 20 Meq Tab.er.prt, 1 TAB PO DAILY for 5 Days, #5 TAB 0 Refills Prov: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 03/14/25 Reported Medications Levothyroxine Sodium (Levothyroxine) 75 Mcg Capsule, 75 MCG PO ACBKFST, CAP 01/16/24 Fluticasone/Umeclidin/Vilanter (Trelegy Ellipta 100-62.5-25) 100-62.5 Blst.w.dev, 1 PUFF IH DAILY 01/16/24 Trazodone HCl (Trazodone HCl) 100 Mg Tablet, 450 MG PO HS, TAB 01/16/24 Rosuvastatin Calcium (Rosuvastatin Calcium) 40 Mg Tablet, 1 TAB PO DAILY 01/16/24 Montelukast Sodium (Montelukast Sodium) 10 Mg Tablet, 1 TAB PO DAILY 01/16/24 Midodrine HCl (Midodrine HCl) 10 Mg Tablet, 1 TAB PO TID 01/16/24 Levetiracetam (Levetiracetam) 500 Mg Tablet, 500 MG PO DAILYDINNER, TAB 01/16/24 Levetiracetam (Levetiracetam) 250 Mg Tablet, 250 MG PO DAILY, TAB 01/16/24 Escitalopram Oxalate (Escitalopram Oxalate) 20 Mg Tablet, 1 TAB PO DAILY 01/16/24 Aspirin (Aspirin) 81 Mg Tab.chew, 81 MG PO DAILY, TAB.CHEW 01/16/24 Clopidogrel Bisulfate (Plavix) 75 Mg Tablet, 75 MG PO DAILY, TAB 05/02/18 Oxybutynin Chloride (Oxybutynin Chloride) 5 Mg Tablet, 2 TAB PO HS, TAB 05/02/18 Pantoprazole Sodium (Pantoprazole Sodium) 40 Mg Tablet.dr, 40 MG PO DAILY, TAB 05/02/18 Past Medical History Past Medical History: Anxiety, Asthma, GERD, High Cholesterol, Hypotension Medical History Other: THYROID Past Surgical History: Other Surgical History Other: LT KNEE SX, RT SHOULDER SX Social History Social History: Negative, Lives with family Constitutional: (-) chills, (-) diaphoresis, (-) fever, (-) malaise, (-) weakness, (-) other documentation EENTM: (-) eye pain, (-) blurred vision, (-) tearing, (-) double vision, (-) ear pain, (-) ear discharge, (-) nose pain, (-) nose congestion, (-) throat pain, (-) Throat swelling, (-) mouth pain, (-) tooth pain, (-) mouth swelling, (-) other documentation Respiratory: (-) cough, (-) orthopnea, (-) short of breath, (-) stridor, (-) wheezing, (-) other documentation Cardiovascular: (-) chest pain, (-) edema, (-) palpitations, (-) syncope, (-) dyspnea on exertion, (-) other documentation Gastrointestinal/Abdominal: (-) nausea, (-) vomiting, (-) diarrhea, (-) abdominal pain, (-) abdominal distention, (-) constipation, (-) rectal bleeding, (-) dark stool/melena, (-) other documentation Genitourinary: (-) penile discharge, (-) dysuria, (-) frequency, (-) hematuria, (-) pain, (-) other documentation Musculoskeletal: (-) Neck pain, (-) back pain, (-) Flank Pain, (-) joint pain, (-) joint swelling, (-) muscle pain, (-) muscle stiffness, (-) gout, (-) other documentation Neuro: (+) vertigo Physical Exam General Appearance: (+) no apparent distress Orientation: (+) alert, (+) oriented x 3 Head/Face Trauma: No Ear, Nose, Throat: (+) hearing grossly normal; (-) normal ENT inspection, (-) moist mucous membraine, (-) normal pharynx, (- ) normal TM, (-) abnormal TM, (-) pharyngeal erythema, (-) sinus drainange, (-) sinus pain, (-) tonsillar exudate, (-) tonsillar swelling, (-) nasal drip, (-) nasal congestion, (-) hearing decreased, (-) dry mucous membraine, (-) other documentation Neck: (-) normal inspection, (-) supple, (-) full range of motion, (-) no JVD, (-) non-tender, (-) no bruit, (-) tender, (-) limited range of motion, (-) tender lateral, (-) tender midline, (-) thyromegaly, (-) lymphadenopathy, (-) masses, (-) carotid bruit, (-) other documentaion Respiratory: (-) chest non-tender, (-) lungs clear, (-) well ventilated, (-) decreased breath sounds, (-) retractions, (-) abnormal breath sound, (-) crackles, (-) plerual rub, (-) rales, (-) rhonchi, (-) stridor, (-) wheezing, (- ) other documentation Heart: (-) regular, (-) no gallop, (-) murmur, (-) irregular, (-) bradycardia, (-) tachycardia, (-) systolic murmur, (-) diastolic murmur, (-) extra beats, (-) friction rub, (-) gallop/S3, (-) gallop/S4, (-) other documentation Vascular: (-) no edema, (-) normal peripheral pulse, (-) no JVD, (-) abdominal aorta, (-) abnormal peripheral pulse, (-) carotid bruit, (-) edema, (-) JVD, (-) varicose vein, (-) other documentation Gastrointestinal: (-) soft, (-) non-tender, (-) no organomegaly, (-) bowel sound present, (-) distended, (-) tender, (-) abnormal bowel sounds, (-) bowel sound absent, (-) rebound, (-) canseco's sign, (-) guarding, (-) hernia, (-) mass, (-) pulsatile mass, (-) CVA tenderness, (-) hepatomegaly, (-) spleenomegal y, (-) other documentation, (-) McBerney's, (-) other documentation Genital: (-) normal exam, (-) testicular pain, (-) penile discharge, (-) penile lesion, (-) deferred, (-) other documentation Rectal: (-) normal exam, (-) normal rectal tone, (-) heme negative stool, (-) deferred, (-) black stool, (-) blood streaked stool, (-) decreased tone, (-) heme positive stool, (-) hemorrhoids, (-) mass, (-) tenderness, (-) other Back: (-) normal inspection, (-) no CVA tenderness, (-) no vertebral tenderness, (-) CVA tenderness (R), (-) CVA tenderness (L), (-) decreased range of motion, (-) muscle spasm, (-) vertebral tenderness, (-) other Extremities: (-) normal range of motion, (-) non-tender, (-) normal inspection, (-) no pedal edema, (-) no calf tenderness, (-) normal capillary refill, (-) pelvis stable, (-) calf tenderness, (-) inflammation, (-) pedal edema, (-) slow capillary refill, (-) swelling, (-) other Neurologic/Psychiatric: (-) normal speech, (-) no motor defecits, (-) no sensory deficits, (-) wire weaver II-XII nml as tested, (-) normal gait, (-) normal mood/affect, (-) abnormal cerebellar tests, (-) abnormal gait, (-) aphasia, (-) facial droop, (-) other documentation Results Laboratory and Microbiology Lab and Micro Result Laboratory Tests Test 05/28/25 14:07 White Blood Count 5.7 K/uL (4.8-10.8) Red Blood Count 4.88 MIL/uL (4.50-6.20) Hemoglobin 13.4 g/dL (14.0-18.0) L Hematocrit 41.1 % (42-54) L Mean Corpuscular Volume 84.2 fL (79-99) Mean Corpuscular Hemoglobin 27.5 pg (27.0-33.0) Mean Corpuscular Hemoglobin Concent 32.6 g/dL (32.0-36.0) Red Cell Distribution Width 16.8 % (11.0-15.5) H Platelet Count 239 K/uL (130-400) Mean Platelet Volume 10.9 fL (7.5-10.5) H Nucleated Red Blood Cells 0.0 % (0.0-0.19) Sodium Level 139 mmol/L (136-145) Potassium Level 3.7 mmol/L (3.5-5.1) Chloride Level 104 mmol/L (101-111) Carbon Dioxide Level 30 mmol/L (21-32) Blood Urea Nitrogen 14 mg/dL (7-18) Creatinine 1.6 mg/dL (0.5-1.3) H Glomerular Filtration Rate Calc 44 mL/min (>90) Random Glucose 118 mg/dL (70-105) H Total Calcium 9.1 mg/dL (8.5-10.1) Troponin I High Sensitivity 14 ng/L (4-75) Labs Reviewed?: Yes EKG/XRAY/US/CT/MRI EKG Comment ID [id number] ID interval 227 QT interval [address] segment elevation X-RAY Comment CHEST IMPRESSION: 1. No acute cardiopulmonary process. 2. As compared to previous CXR dated 03-14-2025, interval resolution of left airspace disease and left pleural effusion. CT Scan Comment CT HEAD No acute intracranial abnormality. MDM MDM: Differential diagnosis: Vertigo, ALEJANDRA The patient was seen and examined in the ER. As the patient is on Plavix and age of 76 CT head was ordered for possible intracranial hemorrhage which was negative Hemoglobin 13.4, creatinine 1.6. Due to increased creatinine the patient was given L normal saline bolus. The patient was educated to drink more water because of his raised creatinine. The patient was concerned regarding getting admitted because his is blind and he would like to go home. ED Course Orders Procedure Category Date Status Time 12 Lead Ekg Tracing- EKG 05/28/25 Complete Technical 13:36 Cbc Without LAB 05/28/25 Complete Differential 13:57 Basic Metabolic Panel LAB 05/28/25 Complete 13:57 Troponin I High LAB 05/28/25 Complete Sensitivity 13:57 Chest 1vw RAD 05/28/25 Resulted 13:57 Ct Head/Brain W/O CT 05/28/25 Resulted Contrast 14:09 0.9%Nacl 1000ml (Ns PHA 05/28/25 Complete 1000ml) 15:00 Current Medications Medications (Trade) Dose Ordered Sig/Rohini Route PRN Reason Start Time Stop Time Status Last Admin Dose Admin Sodium Chloride 1,000 ml @ 0 mls/hr ONCE ONCE IV 05/28/25 15:00 05/28/25 15:01 DC 05/28/25 15:04 Vital Signs Date Time Temp Pulse Resp B/P (MAP) Pulse Ox O2 Delivery O2 Flow Rate FiO2 05/28/25 14:45 98.8 76 17 106/45 99 Room Air* 0 21 05/28/25 13:30 98.2 87 16 111/70 96 Room Air 0 DX & DISP Disposition: Discharge Departure Impression: Primary Impression: Vertigo Additional Impression: Dizziness Condition: Stable Additional Instructions: *Follow up with your primary care physician in 2 - 3 days after discharge. *Continue all medications as prescribed. Do not discontinue or change dosages without consulting your PCP. *Gradually resume normal activities as tolerated. *Continue a balanced diet . Reduce salt intake to help manage BP. *Seek immediate medical attention if you experience chest pain, SOB or severe headache. * Keep yourself well hydrated Referrals: JORGE WARE MD (PCP) YAQUELIN AVILEZ MD May 28, 2025 14:40
--- NOTE | 2025-05-28 15:00 | EKG ---
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 : 1945 Requested By: KATHY HILLS Order Number: [id number] Reading MD: [place] Measurements Intervals [place] Rate: 84 P: 73 IL: 227 QRS: -32 QRSD: 89 T: 71 QT: 377 QTc: 446 Interpretive Statements Sinus rhythm Prolonged IL interval Left axis deviation ST elevation, consider inferior injury Compared to ECG 03/14/2025 10:50:55 First degree AV block now present ST (T wave) deviation now present Myocardial infarct finding now present Sinus arrhythmia no longer present Electronically Signed On 05-28-2025 19:11:22 PRODUCTION CLERK by [place]er Please click the below link to view image of tracing.
--- NOTE | 2025-05-28 15:02 | HMCIMG ---
EXAM: CR CHEST, 1 VIEW CLINICAL HISTORY:Fall COMPARISON: CXR dated 03-14-2025. TECHNIQUE: Single frontal radiograph of the chest was obtained. FINDINGS: Lines/Devices: None. Lungs: Few thin bibasal atelactatic bands. No consolidation or ground-glass opacities are observed. There is no pleural effusion. There is no pneumothorax. Mediastinum and cardiovascular structures: The cardiac silhouette is not enlarged. The central airway and mediastinal contours are unremarkable. Bones and soft tissues: Unremarkable. IMPRESSION: 1. No acute cardiopulmonary process. 2. As compared to previous CXR dated 03-14-2025, interval resolution of left airspace disease and left pleural effusion. /[place]
[2025-05-28] MEDS: 0.9%NACL 1000ML 1,000 ML IV ONE (15:04)
--- NOTE | 2025-05-28 15:44 | HMCIMG ---
EXAM: CT Head Without IV contrast. CLINICAL HISTORY: Fall TECHNIQUE: Axial computed tomography images of the head/brain without intravenous contrast. COMPARISON: None provided. FINDINGS: BRAIN: No evidence of acute hemorrhage. No mass lesion. No CT evidence for acute territorial infarct. No midline shift or extra-axial collections. VENTRICLES: No hydrocephalus. ORBITS: The orbits are unremarkable. SINUSES AND MASTOIDS: The paranasal sinuses and mastoid air cells are clear. BONES: No fracture. SOFT TISSUES: Unremarkable. IMPRESSION: No acute intracranial abnormality. /[place]
[2025-05-28 16:10] VITALS: BP 116/71; PULSE 68; RESP 16; TEMP 98.8; O2SAT 99
[2025-06-09] MEDS ORDERED: BACI30OI6 TP (17:32)
== END 2025-05-28 16:20 | disposition home or self-care (01) ==
LOC: EDH 13:28
DX: R42 Dizziness and giddiness (principal); E78.00 Pure hypercholesterolemia, unspecified; F41.9 Anxiety disorder, unspecified; J45.909 Unspecified asthma, uncomplicated; Z88.0 Allergy status to penicillin; Z88.1 Allergy status to other antibiotic agents; Z88.2 Allergy status to sulfonamides; Z88.8 Allergy status to other drugs, medicaments and biological substances; Z79.82 Long term (current) use of aspirin; Z79.899 Other long term (current) drug therapy; Z79.02 Long term (current) use of antithrombotics/antiplatelets
CPT/HCPCS: 99285; 96360; 70450; 71045; 84484; 80048; 85027; 36415; 93005; J7030